=== PATIENT | female | born 1955 | race Caucasian/White ===

== ENCOUNTER 2016-12-30 12:30 | Emergency (ER) | payer OTHER ==
[~2016-12-30] VITALS: Ht 167.6 cm; Wt 100.0 kg
[~2016-12-30 12:30] MED LIST: CITA40TA4 PO; FLOR250C PO; FOLI1TAB4 PO; OMEP20CA2; OXYC1TAB63 PO; PSEU30TA2 PO; TOPI1TAB36 PO; TRAZ150T75 PO; TUMS500C CHEW; VITA100021 SL; VITA3000 PO
[2016-12-30 12:31] VITALS: BP 178/86; PULSE 105; RESP 26; TEMP 98.4; O2SAT 98
--- NOTE | 2016-12-30 13:48 | PD ---
HPI Chief Complaint: Pain: Acute or Chronic Time Seen by Provider: 13:48 Travel History International Travel<30 days: No Contact w/Intl Traveler<30days: No Traveled to known affect area: No History of Present Illness HPI 61-year-old female presents to emergency Department with complaint of continued left upper back pain times one week. Denies injury. Has history of degenerative disc disease and sees Dr. Goyal, neurosurgeon. Has follow-up appointment with Dr. Goyal on January 19. Saw her primary care provider on Tuesday and was given muscle relaxers for nerve impingement, with no improvement in symptoms. Was also given an order for MRI, which she tried to do MRI this morning and was unable to lie flat on the table secondary to pain. She was unable to complete the MRI. She also takes oxycodone and says it hasn't been touching her pain. Pain radiates down her left arm. She denies chest pain or shortness of breath. Denies fever, vomiting. Pain is worse with lying flat, movement, palpation. Reports occasional paresthesias to her left second and third fingers. Denies loss of sensation, decreased range of motion, decreased strength to the affected extremity. Rates pain 10/10. Patient is tearful. Describes as a sharp shooting pain. Allergies to sulfa. Has no other medical complaints. No other modifying factors or associated signs and symptoms. PFSH Past Medical History Cancer: Yes (COLON CANCER) Diabetes: No Hepatitis: No Hiatal Hernia: No Thyroid Disease: No ?: Not Past Surgical History Abdominal Surgery: Yes (PARTIAL COLECTOMY, CHEMO 1999) Gynecologic Surgery: Yes (TOTAL HYSTERECTOMY) Hysterectomy: Yes Pacemaker: No Social History Alcohol Use: Yes Tobacco Use: No Substance Use: No Allergies-Medications (Allergen,Severity, Reaction): Coded Allergies: Sulfa (Sulfonamide Antibiotics) (Unverified Allergy, Severe, Rash, 10/27/16 ) Reported Meds & Prescriptions Reported Meds & Active Scripts Active Medrol Dosepak (Methylprednisolone) 4 Mg Dspk 4 Mg PO DIRECTED Per Pharmacist direction Reported Florastor (Saccharomyces Boulardii) 250 Mg Cap 250 Mg PO BID Vitamin B-12 (Cyanocobalamin) 1,000 Mcg Subl 1,000 Mcg SL DAILY Tums (Calcium Carbonate (Antacid)) 500 Mg Chew 500 Mg CHEW PRN Vitamin D3 (Cholecalciferol) 3,000 Unit Tab 3,000 Units PO DAILY Citalopram (Citalopram Hydrobromide) 40 Mg Tab 40 Mg PO DAILY Folate (Folic Acid) 1 Mg Tab 1 Mg PO DAILY Omeprazole 20 Mg Cap Oxycodone-Acetaminophen 5-325 mg Tab 1 Tab PO Q8HR Pseudoephedrine (Pseudoephedrine HCl) 30 Mg Tab 30 Mg PO DAILY PRN Topiramate 50 Mg Tab 50 Mg PO BID Trazodone (Trazodone HCl) 150 Mg Tab 150 Mg PO HS Review of Systems Except as stated in HPI: all other systems reviewed are Neg Physical Exam Narrative GENERAL: Well-nourished, well-developed female patient, in no acute distress; tearful and crying SKIN: Warm and dry. HEAD: Atraumatic. Normocephalic. EYES: Pupils equal and round. No scleral icterus. No injection or drainage. ENT: Mucosa pink and moist. Airway patent. NECK: Moving freely. Trachea midline. No lymphadenopathy. No obvious deformities. CARDIOVASCULAR: Regular rate. RESPIRATORY: No accessory muscle use. GASTROINTESTINAL: Obese. MUSCULOSKELETAL: Left upper extremity is supple and non-tense with 2+ radial pulse and sensory intact without erythema or edema and with full range of motion and strength. No obvious deformities. No clubbing. No cyanosis. No edema. Normal gait. BACK: Reproducible tenderness to the left upper musculature of the back of the trapezius muscle between the scapula and the spine.. No obvious deformities. NEUROLOGICAL: Awake and alert. Oriented 3. No obvious cranial nerve deficits. Motor grossly within normal limits. Normal speech. Moves all extremities. 5/5 strength to all extremities. Sensory intact. PSYCHIATRIC: Appropriate mood and affect; insight and judgment normal. Data Data Last Documented VS Vital Signs Date Time Temp Pulse Resp B/P (MAP) Pulse Ox O2 Delivery O2 Flow Rate FiO2 12/30/16 12:31 98.4 105 26 178/86 (116) 98 Orders Orders Ketorolac Inj (Toradol Inj) (12/30/16 14:00) Orphenadrine Inj (Norflex Inj) (12/30/16 14:00) Dexamethasone Inj (Decadron Inj) (12/30/16 14:00) Ed Discharge Order (12/30/16 13:58) MDM Medical Decision Making Medical Screen Exam Complete: Yes Emergency Medical Condition: Yes Medical Record Reviewed: Yes Differential Diagnosis Cervical radiculopathy, muscle spasm of the back, chronic back pain Narrative Course 61-year-old female, with chronic back pain, history of present illness and physical exam consistent with cervical radiculopathy. Denies new or recent injury. She saw her primary care provider on Tuesday and was given muscle relaxers with no improvement in symptoms. She was also ordered to do an MRI and went to go to this morning was unable to lie flat to get it done. She sees Dr. Goyal for degenerative disc disease and has a follow-up appointment on January 19. She has prescribed oxycodone and muscle relaxers. I will order an injection of Decadron in the emergency department and prescribed a Medrol Dosepak for home. Toradol, Norflex, Decadron administered in the ER. Medrol Dosepak prescribed for home. Instructed patient to continue muscle relaxers and pain medication as prescribed. Instructed patient to obtain MRI. Instructed patient to follow up with Dr. Goyal. Instructed patient to follow up with primary care provider. Patient verbalizes understanding and agreement with treatment plan. Patient is medically cleared and stable for discharge. Discussed reasons to return to the emergency department. Patient agrees with treatment plan. The patients vital signs are stable and the patient is stable for outpatient follow-up and treatment. Patient discharged home, stable and in no acute distress. Diagnosis Primary Impression: Cervical radiculopathy Referrals: Neurosurgeon Primary Care Physician Patient Instructions: Cervical Radiculopathy (ED), General Instructions Additional Instructions: Continue medications and muscle relaxers as prescribed Heating pad and/or ice to affected area to reduce pain Avoid aggravating activities; increase activity as tolerated Follow-up with primary care provider Follow-up with neurosurgeon Return to emergency department immediately with worsening of symptoms Med/Other Pt SpecificInfo: Prescription(s) given Scripts Methylprednisolone Dosepak (Medrol Dosepak) 4 Mg Dspk 4 MG PO DIRECTED, #1 DSPK 0 Refills Per Pharmacist direction Prov: Janet Pinon 12/30/16 Disposition: 01 DISCHARGE HOME Condition: Stable Janet Pinon Dec 30, 2016 13:48
[2016-12-30] MEDS ORDERED: MEDR4PAK PO (13:56)
[2016-12-30] MEDS ORDERED: ORPHENADRINE INJ 60 MG/2 ML AMP IM ONE (14:00)
[2016-12-30] MEDS ORDERED: KETOROLAC TROMETHAMINE 60 MG/2 ML (IM) VIAL IM ONE (14:00)
[2016-12-30] MEDS ORDERED: DEXAMETHASONE SOD PHOS 4 MG/ML VIAL IM ONE (14:00)
[2016-12-30 14:50] VITALS: BP 169/83
[2017-01-05] MEDS ORDERED: [UNRECOGNIZED DRUG - CODE] (16:27)
[2017-01-05] MEDS ORDERED: SOMA350T PO (16:27)
[2017-01-05] MEDS ORDERED: KETO10 PO (16:27)
[2017-01-05] MEDS ORDERED: TRAZ1TAB45 PO (16:27)
[2017-01-05] MEDS ORDERED: FOLI1TAB6 (16:27)
[2017-01-05] MEDS ORDERED: TURM500C3 (16:28)
== END 2016-12-30 14:54 | disposition home or self-care (01) ==
LOC: NEPK 12:30
DX: M54.12 Radiculopathy, cervical region (principal)
CPT/HCPCS: 99283

== ENCOUNTER 2017-01-05 17:50 | Observation (INO) | payer OTHER ==
[~2017-01-05] VITALS: Ht 167.6 cm; Wt 95.8 kg
[~2017-01-05 17:50] MED LIST changes: +FOLI1TAB6; +KETO10 PO; +MEDR4PAK PO; +SOMA350T PO; +TRAZ1TAB45 PO; +TURM500C3; +[UNRECOGNIZED DRUG - CODE]
[2017-01-05] MEDS ORDERED: HYDROmorphone HCL PF 1 MG/ML VIAL IV PUSH PRN (19:00)
[2017-01-05] MEDS ORDERED: NALOXONE HCL 0.4 MG/ML AMP IV PUSH PRN (19:00)
[2017-01-05] MEDS ORDERED: HYDROmorphone HCL 2 MG TAB PO PRN (19:00)
[2017-01-05] MEDS ORDERED: ONDANSETRON HCL 4 MG/2 ML VIAL IV PUSH PRN (19:00)
--- NOTE | 2017-01-05 19:25 | HHI.HP ---
HPI Service Neurosurgery Primary Care Physician Unknown Chief Complaint: Severe left scapular, shoulder and arm pain for approximately 10 days History of Present Illness Ms. Lange is a 61-year-old lady who states that approximately 10 days ago she turned at night and felt some discomfort in the left shoulder. Throughout the next day she experienced progressive severe pain in the left posterior shoulder and upper scapular region with progressive radiation of pain to the primarily dorsal aspect of the left arm greater than forearm. The pain has persisted and increased in severity over the past week. She has now developed constant numbness in the first through third digits of the left hand with occasional numbness in the dorsal left forearm. The pain has ranged from a 7-10/10 severity over the past week. She presented to the emergency room last week and states that she was given an injection which slightly helped the pain. An outpatient MRI of the cervical spine and thoracic spine was ordered. She has taken oxycodone Toradol prednisone and Robaxin for the pain, all without significant relief. She has no complaint of fevers or chills. No chest pain or shortness of breath. No productive cough. She does have a history of low back pain, but over the past couple of weeks has developed numbness over the left anterior lateral thigh. Review of Systems Constitutional: DENIES: Fatigue, Fever Eyes: DENIES: Blurred vision, Diplopia Ears, nose, mouth, throat: DENIES: Hearing loss, Vertigo Respiratory: DENIES: Sputum production, Shortness of breath Cardiovascular: DENIES: Chest pain, Palpitations Gastrointestinal: DENIES: Abdominal pain, Diarrhea, Nausea, Vomiting Genitourinary: DENIES: Urinary frequency, Urinary incontinence Musculoskeletal: COMPLAINS OF: Muscle aches, Back pain, Neck pain, DENIES: Joint pain, Joint Swelling Integumentary: DENIES: Rash Hematologic/lymphatic: DENIES: Bruising Neurologic: COMPLAINS OF: Paresthesias, DENIES: Abnormal gait, Headache, Localized weakness Psychiatric: COMPLAINS OF: Anxiety, DENIES: Confusion Past Family Social History Allergies: Coded Allergies: Sulfa (Sulfonamide Antibiotics) (Unverified Allergy, Severe, Rash, ) Past Medical History Colon cancer No history of cardiac, pulmonary disease, hypertension, diabetes Past Surgical History Partial colectomy Hysterectomy Reported Medications Reported Meds & Active Scripts Active Medrol Dosepak (Methylprednisolone) 4 Mg Dspk 4 Mg PO DIRECTED Per Pharmacist direction Reported Turmeric (Turmeric (Curcuma Longa)) 450 Mg-50 Mg Cap Folic Acid 1 Mg Tablet Eql Nasal Decongestant (Pseudoephedrine HCl) 30 Mg Tab Trazodone (Trazodone HCl) 150 Mg Tablet 150 Mg PO HS Soma (Carisoprodol) 350 Mg Tab 350 Mg PO QID PRN Ketorolac (Ketorolac Tromethamine) 10 Mg Tab 10 Mg PO Q6HR PRN Florastor (Saccharomyces Boulardii) 250 Mg Cap 250 Mg PO BID Tums (Calcium Carbonate (Antacid)) 500 Mg Chew 500 Mg CHEW PRN Vitamin D3 (Cholecalciferol) 3,000 Unit Tab 3,000 Units PO DAILY Citalopram (Citalopram Hydrobromide) 40 Mg Tab 40 Mg PO DAILY Omeprazole 20 Mg Cap Oxycodone-Acetaminophen 5-325 mg Tab 1 Tab PO Q8HR Family History Negative for neurologic disorders, arthritis, lupus, MS Social History Does not smoke cigarettes. Infrequent alcohol Physical Exam Physical Exam GENERAL: This is a well-nourished, well-developed patient, no apparent distress. SKIN: No abrasions, contusion, rash noted. Skin warm and dry. HEAD: Atraumatic. Normocephalic. No temporal or scalp tenderness. EYES: Sclerae are clear and nonicteric ENT: No facial edema or ecchymosis. No periorbital edema. No CSF otorrhea or rhinorrhea. No palpable facial fracture or deformity. NECK: Trachea midline. Mild cervical spine tenderness. Cervical range of motion 60 rotation, 30 flexion, 15 extension with complaint of increased left shoulder and arm pain with extension CARDIOVASCULAR: Regular rate and rhythm without murmurs, gallops, or rubs. RESPIRATORY: Clear to auscultation. Breath sounds equal bilaterally. No wheezes , rales, or rhonchi. GASTROINTESTINAL: Abdomen soft, non-tender, nondistended. No hepato-splenomegaly , or palpable masses. No guarding. MUSCULOSKELETAL: Extremities without cyanosis, or edema. No joint tenderness, or edema noted. No calf tenderness. Dorsalis pedis pulses 2+ bilateral Moderate tenderness with relatively mild palpation over the left posterior shoulder-upper scapular region as well as over the lateral left arm greater than dorsal left forearm. No significant shoulder joint pain or impairment of shoulder joint range of motion NEUROLOGICAL: Awake and alert Oriented X 3 Speech is clear Conversant and appropriate Follow simple commands well Answers questions appropriately Reasonable judgment and insight Recent and remote memory are intact Appears anxious during the examination. Becomes mildly agitated at times, and tearful when discussing her pain symptoms Patient motor movements symmetric Sensation is intact to light touch in all extremities except mild to moderate decreased sensation first through third digits left hand Strength normal major flexion and extension groups all extremities Chinedu's absent bilaterally No ankle clonus Plantar responses absent bilateral Fine motor movements intact upper extremities Imaging 12/31/2016 MRI of the cervical spine reveals moderate chronic C5 6 posterior osteophytic disc complexes which mildly impinges on the anterior cord. No abnormal signal intensity within the cord. Moderate bilateral foraminal stenosis at the C5 6 level. Mild left C6 7 foraminal stenosis. Caprini VTE Risk Assessment Caprini VTE Risk Assessment: No/Low Risk (score <= 1) Caprini Risk Assessment Model Point Value = 1 Point Value = 2 Point Value = 3 Point Value = 5 Age 41-60 Minor surgery BMI > 25 kg/m2 Swollen legs Varicose veins or History of unexplained or recurrent spontaneous Oral contraceptives or hormone replacement Sepsis (< 1 month) Serious lung disease, including pneumonia (< 1 month) Abnormal pulmonary function Acute myocardial infarction Congestive heart failure (< 1 month) History of inflammatory bowel disease Medical patient at bed rest Age 61-74 Arthroscopic surgery Major open surgery (> 45 min) Laparoscopic surgery (> 45 min) Malignancy Confined to bed (> 72 hours) Immobilizing plaster cast Central venous access Age >= 75 History of VTE Family history of VTE Factor V Leiden Prothrombin [id number] Lupus anticoagulant Anticardiolipin antibodies Elevated serum homocysteine Heparin-induced thrombocytopenia Other congenital or acquired thrombophilia Stroke (< 1 month) Elective arthroplasty Hip, pelvis, or leg fracture Acute spinal cord injury (< 1 month) Prophylaxis Regimen Total Risk Factor Score Risk Level Prophylaxis Regimen 0-1 Low Early ambulation 2 Moderate Order ONE of the following: *Sequential Compression Device (SCD) *Heparin 5000 units SQ BID 3-4 Higher Order ONE of the following medications: *Heparin 5000 units SQ TID *Enoxaparin/Lovenox 40 mg SQ daily (WT < 150 kg, CrCl > 30 mL/min) *Enoxaparin/Lovenox 30 mg SQ daily (WT < 150 kg, CrCl > 10-29 mL/min) *Enoxaparin/Lovenox 30 mg SQ BID (WT < 150 kg, CrCl > 30 mL/min) AND/OR *Sequential Compression Device (SCD) 5 or more Highest Order ONE of the following medications: *Heparin 5000 units SQ TID (Preferred with Epidurals) *Enoxaparin/Lovenox 40 mg SQ daily (WT < 150 kg, CrCl > 30 mL/min) *Enoxaparin/Lovenox 30 mg SQ daily (WT < 150 kg, CrCl > 10-29 mL/min) *Enoxaparin/Lovenox 30 mg SQ BID (WT < 150 kg, CrCl > 30 mL/min) AND *Sequential Compression Device (SCD) Assessment and Plan Assessment and Plan Impression: 1. Severe intractable left shoulder and arm pain with numbness first through third digits left hand. Outpatient cervical spine MRI this week has been reviewed and reveals moderate left C5 6 and mild left C6 7 foraminal stenosis. These are chronic findings unchanged from prior MRI from 2013. Her symptoms appear unusual and somewhat out of proportion to the MRI findings raising question of other etiology including possible left shoulder myofascial pain or brachial plexitis. 2. Chronic low back pain with recent onset numbness left anterior lateral thigh. Plan: Findings were discussed with the patient. She is extremely painful and tearful in the office today, to the point of being rather agitated. I offered to bring her to the hospital for further evaluation and intraoral of the intractable pain, and she does wish to pursue this. We will add additional medications including IV pain medications and short course of dexamethasone for her pain regimen. MRI of the left shoulder and brachial plexus is been requested. OT and PT evaluations Will ask neurology to see due to possible left brachial plexitis. Baseline laboratory tests Arnoldo Goyal MD Jan 05, 2017 19:24
[2017-01-05 20:17] VITALS: BP 161/73; PULSE 75; RESP 18; TEMP 97.3; O2SAT 97
[2017-01-05] MEDS ORDERED: HYDROmorphone HCL PF 0.5 MG/0.5 ML SYRINGE IV PUSH PRN (20:30)
[2017-01-05] MEDS: LACTOBACILLUS ACIDOPHILUS TAB PO SCH (20:33)
[2017-01-05] MEDS: DOCUSATE SODIUM 100 MG CAP PO SCH (20:33)
[2017-01-05] MEDS: traZODone HCL 50 MG TAB PO SCH (20:34)
[2017-01-05] MEDS: DEXAMETHASONE 4 MG TAB PO SCH (20:34)
[2017-01-05] MEDS: METHOCARBAMOL 500 MG TAB PO PRN (23:33)
[2017-01-05] MEDS: KETOROLAC TROMETHAMINE 30 MG/ML (IVP) VIAL IV PUSH SCH (23:34)
[2017-01-06 00:51] VITALS: BP 146/69; PULSE 71; RESP 18; TEMP 97.5; O2SAT 96
[2017-01-06 02:56] VITALS: O2SAT 95
[2017-01-06 05:26] VITALS: BP 123/60; PULSE 66; RESP 18; TEMP 97.5; O2SAT 94
[2017-01-06] MEDS: KETOROLAC TROMETHAMINE 30 MG/ML (IVP) VIAL IV PUSH SCH ×3 (06:06→17:49)
[2017-01-06 07:40] LABS: AUTOMATED NEUTROPHIL # 11.1 TH/MM3 (1.8-7.7); BASOPHIL % 0.1 % (0.0-2.0); EOSINOPHIL % 0.2 % (0.0-4.0); HEMATOCRIT 37.8 % (35.0-46.0); HEMO FLAGS DIFF FINAL; LYMPH % 11.4 % (9.0-44.0); LYMPHOCYTE # 1.5 TH/MM3 (1.0-4.8); MEAN CELL VOLUME 93.7 FL (80.0-100.0); MEAN CORPUSCULAR HGB CONC 34.2 % (32.0-36.0); MONO % 2.4 % (0.0-8.0); NEUT % 85.9 % (16.0-70.0); PLATELET COUNT 346 TH/MM3 (150-450); RED BLOOD COUNT 4.03 MIL/MM3 (4.00-5.30); RED CELL DISTRIBUTION WIDTH 13.5 % (11.6-17.2)
[2017-01-06 08:28] VITALS: BP 121/61; PULSE 61; RESP 20; TEMP 98.2; O2SAT 95
[2017-01-06] MEDS: CITALOPRAM HYDROBROMIDE 40 MG TAB PO SCH (08:53)
[2017-01-06] MEDS: PANTOPRAZOLE SOD 40 MG DELAYED RELEASE TAB PO SCH (08:53)
[2017-01-06] MEDS: DOCUSATE SODIUM 100 MG CAP PO SCH ×2 (08:53→20:54)
[2017-01-06] MEDS: METHOCARBAMOL 500 MG TAB PO PRN ×2 (08:53→20:54)
[2017-01-06] MEDS: DEXAMETHASONE 4 MG TAB PO SCH ×2 (08:54→20:54)
[2017-01-06] MEDS: LACTOBACILLUS ACIDOPHILUS TAB PO SCH ×2 (08:54→20:54)
[2017-01-06] MEDS: CHOLECALCIFEROL (VIT D3) 1000 UNIT TAB PO SCH (08:55)
[2017-01-06 08:59] LABS: ANION GAP 8 MEQ/L (5-15); AST (GOT) 17 U/L (15-37); BICARBONATE 23.7 MEQ/L (21.0-32.0); BLOOD UREA NITROGEN 23 MG/DL (7-18); CHLORIDE 104 MEQ/L (98-107); GLOMERULAR FILTRATION RATE 64 ML/MIN (>89); POTASSIUM 4.8 MEQ/L (3.5-5.1); SODIUM (NA) 136 MEQ/L (136-145)
[2017-01-06 09:00] LABS: ALT (GPT) 40 U/L (10-53)
[2017-01-06 09:02] LABS: ALKALINE PHOSPHATASE 107 U/L (45-117); TOTAL BILIRUBIN ADULT 0.4 MG/DL (0.2-1.0)
[2017-01-06] MEDS: oxyCODONE/ACETAMINOPHEN 5 MG/325 MG TAB PO PRN ×2 (10:22→20:56)
[2017-01-06] MEDS: MORPHINE SULFATE 4 MG/ML INJ IV PUSH PRN (11:20)
[2017-01-06] MEDS ORDERED: GADODIAMIDE PF 287 MG/ML 20 ML VIAL (for RAD MRI) IVCONTRAST ONE (12:00)
--- NOTE | 2017-01-06 15:40 | RADRPT ---
EXAM DATE/TIME: 01/06/2017 11:31 [facility] COMPARISON: No previous studies available for comparison. EXTERNAL COMPARISON : [facility], MRI Cervical and Thoracic Spine, December 31, 2016 INDICATIONS : Severe left shoulder pain. No known injury. CONTRAST: 19 cc Omniscan (gadodiamide) IV MEDICAL HISTORY : Sleep apnea. 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 SURGICAL HISTORY : Hysterectomy. Colectomy. ENCOUNTER: Initial ACUITY: 2 weeks PAIN SCORE: 9/10 LOCATION: Right Shoulder. TECHNIQUE: Multiplanar, multisequence MRI examination of the brachial plexus was performed without contrast and after intravenous administration of gadolinium. FINDINGS: SOFT TISSUES: There is normal signal in the muscular and fatty tissues. No masses are seen. LUNGS: The visualized pulmonary apex is unremarkable. NEUROVASCULAR: The vascular structures of the supraclavicular region are grossly intact. The visualized structures in the region of the brachial plexus nerve roots and trunks are intact without mass or enlargement. BONY STRUCTURES: There is homogeneous signal in the marrow of the visualized bones. There are moderate degenerative ch anges in the cervical spine. There is sizable disc protrusions at C5-6, C6-7 and C7-T1. CONCLUSION: 1. The brachial plexus is intact. 2. Degenerative changes of the cervical spine with disc protrusions as above. Cristian Polanco MD on January 06, 2017 at 15:25 Board Certified Radiologist. This report was verified electronically.
[2017-01-06 16:10] VITALS: BP 150/68; PULSE 90; RESP 20; TEMP 96.6; O2SAT 95
--- NOTE | 2017-01-06 16:52 | HHI.NSPN ---
(Rashard Fraser) History Chief Complaint: Pain to the left posterior shoulder and arm. (Rashard Fraser) Interval History 01/05: Ms. Lange is a 61-year-old lady who states that approximately 10 days ago she turned at night and felt some discomfort in the left shoulder. Throughout the next day she experienced progressive severe pain in the left posterior shoulder and upper scapular region with progressive radiation of pain to the primarily dorsal aspect of the left arm greater than forearm. The pain has persisted and increased in severity over the past week. She has now developed constant numbness in the first through third digits of the left hand with occasional numbness in the dorsal left forearm. The pain has ranged from a 7-10/10 severity over the past week. She presented to the emergency room last week and states that she was given an injection which slightly helped the pain. An outpatient MRI of the cervical spine and thoracic spine was ordered. She has taken oxycodone Toradol prednisone and Robaxin for the pain, all without significant relief. She has no complaint of fevers or chills. No chest pain or shortness of breath. No productive cough. She does have a history of low back pain, but over the past couple of weeks has developed numbness over the left anterior lateral thigh. 01/06: The patient is doing fairly well when seen. She continues to have the pain to the left posterior shoulder and arm and the numbness to the first three digits of the left hand. She did have and MRI of the shoulder and brachial plexus this morning. (Rashard Fraser) System Review Comments Respiratory: Some shortness of breath. Cardiovascular: Some pain to the breast bone. Gastrointestinal: Some pain to the left epigastric area. Musculoskeletal: Pain to the left lateral neck going into the left posterior shoulder and down the left arm. Neurologic: Numbness to the left hand second digit, slight numbness to the first and third. The remainder of the ROS is negative. (Rashard Fraser) Exam Results 01/04/17 01/04/17 01/05/17 01/05/17 01/06/17/26/17 06:00 18:00 06:00 18:00 06:00 18:00 Intake Total 480 ml 600 ml Balance 480 ml 600 ml Intake Oral 480 ml 600 ml # Voids 2 2 Vital Signs Date Time Temp Pulse Resp B/P (MAP) Pulse Ox O2 Delivery O2 Flow Rate FiO2 01/06/17 16:10 96.6 90 20 150/68 (95) 95 01/06/17 08:28 98.2 61 20 121/61 (81) 95 01/06/17 05:26 97.5 66 18 123/60 (81) 94 01/06/17 02:56 95 21 01/06/17 00:51 97.5 71 18 146/69 (94) 96 01/05/17 20:17 97.3 75 18 161/73 (102) 97 (Rashard Fraser) Physical Examination GENERAL: Awake & alert, affect normal, no apparent distress but appears minimally uncomfortable. SKIN: Warm, dry & intact w/o any evident rashes, ulcerations or lesions. HEENT: Normocephalic, atraumatic. NECK: Midline cervical spine mildly TTP, no JVD, trachea midline. CARDIOVASCULAR: S1S2 w/RRR w/o M/G/R, radial & pedal pulses 2+ bilaterally, cap refill < 2 sec, trace pedal edema. RESPIRATORY: CTAB w/o W/R/R, equal excursion, nonlaboured, on RA. GASTROINTESTINAL: Abdomen soft, nontender, positive bowel sounds. MUSCULOSKELETAL: GARCIA w/o difficulty, no evident deformity or clubbing. TTP at T1 and left paraspinal going across the upper posterior left shoulder and into the left lateral arm w/moderate point tenderness to the distal upper shoulder and proximal lateral arm. NEUROLOGICAL: AAOx3. Speech clear & appropriate. Follows simple commands w/o difficulty. Sensation intact to light touch to all extremities except for the left hand 2nd digit which is decreased and to a lesser degree the 1st & 3rd digits. Motor strength is 5/5 to all major flexion & extension muscle groups. (Rashard Fraser) Lab, Micro, Other Results Recent Impressions Brachial Plexus MRI 01/06/17 0000 Signed Impressions: Service Date/Time: Thursday, January 06, 2017 11:31 - CONCLUSION: 1. The brachial plexus is intact. 2. Degenerative changes of the cervical spine with disc protrusions as above. Cristian Polanco MD Laboratory Tests Test 01/06/17 06:41 White Blood Count 13.0 TH/MM3 Red Blood Count 4.03 MIL/MM3 Hemoglobin 12.9 GM/DL Hematocrit 37.8 % Mean Corpuscular Volume 93.7 FL Mean Corpuscular Hemoglobin 32.0 PG Mean Corpuscular Hemoglobin Concent 34.2 % Red Cell Distribution Width 13.5 % Platelet Count 346 TH/MM3 Mean Platelet Volume 7.6 FL Neutrophils (%) (Auto) 85.9 % Lymphocytes (%) (Auto) 11.4 % Monocytes (%) (Auto) 2.4 % Eosinophils (%) (Auto) 0.2 % Basophils (%) (Auto) 0.1 % Neutrophils # (Auto) 11.1 TH/MM3 Lymphocytes # (Auto) 1.5 TH/MM3 Monocytes # (Auto) 0.3 TH/MM3 Eosinophils # (Auto) 0.0 TH/MM3 Basophils # (Auto) 0.0 TH/MM3 CBC Comment DIFF FINAL Differential Comment Erythrocyte Sedimentation Rate 7 mm/hr Blood Urea Nitrogen 23 MG/DL Creatinine 0.89 MG/DL Random Glucose 125 MG/DL Total Protein 7.3 GM/DL Albumin 4.0 GM/DL Calcium Level 9.4 MG/DL Alkaline Phosphatase 107 U/L Aspartate Amino Transf (AST/SGOT) 17 U/L Alanine Aminotransferase (ALT/SGPT) 40 U/L Total Bilirubin 0.4 MG/DL Sodium Level 136 MEQ/L Potassium Level 4.8 MEQ/L Chloride Level 104 MEQ/L Carbon Dioxide Level 23.7 MEQ/L Anion Gap 8 MEQ/L Estimat Glomerular Filtration Rate 64 ML/MIN C-Reactive Protein 0.37 MG/DL (Rashard Fraser) Medical Decision Making Impression and Plan Impression: 1. Severe intractable left shoulder and arm pain with numbness first through third digits left hand. Outpatient cervical spine MRI this week has been reviewed and reveals moderate left C5 6 and mild left C6 7 foraminal stenosis. These are chronic findings unchanged from prior MRI from 2013. Her symptoms appear unusual and somewhat out of proportion to the MRI findings raising question of other etiology including possible left shoulder myofascial pain or brachial plexitis. 2. Chronic low back pain with recent onset numbness left anterior lateral thigh. Patient continues to have pain to the left shoulder and arm w/o any change. MRI w/o any evidence of brachial plexus abnormality but did demonstrate degenerative disc changes w/protrusions to the cervical spine. Plan: Pain medications. PT/OT eval & tx. Neurology consult. (Rashard Fraser) Attending Statement The MRI of the brachial plexus and shoulder was also been reviewed. The patient continues to have severe left shoulder, proximal greater than distal arm pain. Symptoms seem rather out of proportion to the cervical spine and MRI findings, which are rather chronic and not significant change from prior MRI from 2012. Continuing therapy, pain medications for control of intractable pain. Neurology evaluation pending. Upper extremity EMG may be considered. Continue short course steroids. (Arnoldo Goyal MD) Rashard Fraser Jan 06, 2017 16:52 Arnoldo Goyal MD Jan 06, 2017 22:33
--- NOTE | 2017-01-06 17:35 | RADRPT ---
EXAM DATE/TIME: 01/06/2017 11:31 [place] COMPARISON: No previous studies available for comparison. EXTERNAL COMPARISON : [facility], MRI Cervical and Thoracic Spine, December 31, 2016 INDICATIONS : Severe left shoulder pain. No known injury. MEDICAL HISTORY : Sleep apnea. SURGICAL HISTORY : Hysterectomy. Colectomy. Sebacious gland removed from groin. ENCOUNTER: Initial ACUITY: 2 weeks PAIN SCORE: 9/10 LOCATION: Left shoulder TECHNIQUE: Multiplanar, multisequence MRI examination was performed without contrast. FINDINGS: ROTATOR CUFF: The supraspinatus, infraspinatus, subscapularis, and teres minor tendons are intact. LABRUM: Labrum is within normal limits. MARROW/CARTILAGE: Bone marrow signal is homogeneous. The humeral head is mildly high riding.. OTHER: Acromioclavicular joint is within normal limits. The acromion has a curved configuration posteriorly and narrows the superior joint space.. Proximal biceps tendon is intact. Minimal mild fluid in the distal subacromial bursa and minimal mild fluid in the joint space. CONCLUSION: 1. The rotator cuff appears intact. 2. Mild impingement with high riding humeral head and posterior downsloping acromion. Rosales Sainz MD on January 06, 2017 at 17:28 Board Certified Radiologist. This report was verified electronically.
[2017-01-06 20:00] VITALS: BP 163/75; PULSE 83; RESP 18; TEMP 97.9; O2SAT 95
[2017-01-06] MEDS: traZODone HCL 50 MG TAB PO SCH (20:54)
[2017-01-07] VITALS (7 sets, daily range): BP systolic 121–140; BP diastolic 56–96; PULSE 57–74; RESP 16–20; TEMP 97.6–98.6; O2SAT 94–97
[2017-01-07] MEDS: KETOROLAC TROMETHAMINE 30 MG/ML (IVP) VIAL IV PUSH SCH ×4 (06:10→16:18)
--- NOTE | 2017-01-07 06:17 | MB ---
cc: JOSIE,ID DATE OF CONSULTATION 01/06/2017 REASON FOR CONSULTATION Severe acute left arm. Possible brachial plexitis versus cervical radiculopathy. HISTORY OF PRESENT ILLNESS Ms. Lange is a 61-year-old right-handed female who states that she has had left upper extremity and left shoulder discomfort that started 11 days ago, first in the left shoulder. 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 The patient describes severe excruciating pain mainly in the left shoulder region; it radiates down the outer border of the arm , wraps around the forearm down to the outer surface of the forearm to the thumb , index and middle finger. The pain is dull, constant, occasionally with sharp shooting pain. The patient states that the pain is mainly position related. She denies any weakness in the bilateral upper extremity or lower extremity. No change in the skin color or dryness or over-sweating over the skin. No skin lesions on described. She denies a flu-like illness or fever prior to this illness. She received an injection of nonsteroidal inflammatory recently and she is on opiate medication that tends to help but she expresses her desire not to be on opiate medications. She has been started by her neurosurgeon on Toradol and a short course of steroids. No recent history of weight loss, night sweats or fever. REVIEW OF SYSTEMS A 12-point review of systems is negative except for what is stated in the HPI. PAST MEDICAL HISTORY 1. Colon cancer. 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 4. Ankylosing spondylitis. 5. Bilateral frozen shoulder. 6. Cervical spine degeneration. PAST SURGICAL HISTORY 1. Partial colectomy. 2. Hysterectomy. 3. Removal of sebaceous cancer of the groin. MEDICATIONS 1. Medrol Dosepak. 2. Turmeric. 3. Folic acid. 4. Trazodone. 5. Soma. 6. Ketolorac. 7. Florastor. 8. Tums. 9. Vitamin D3. 10. Citalopram. 11. Omeprazole. 12. Oxycodone/acetaminophen. FAMILY HISTORY Noncontributory. SOCIAL HISTORY Denies smoking cigarettes or illicit drug abuse. Infrequently consumes alcohol. PHYSICAL EXAMINATION GENERAL: Overweight. Good historian. Pleasant. In moderate distress due to pain. HEENT: Atraumatic, normocephalic. Intact hearing and intact vision. NECK: Supple. No neck stiffness. Mild tenderness of the neck muscles. CARDIOVASCULAR: Regular rate and rhythm. RESPIRATORY: Clear to auscultation, no wheezes. GASTROINTESTINAL: Soft, nondistended. No tenderness. MUSCULOSKELETAL: No cyanosis, no edema. Good range of motion. Moderate tenderness in the posterior shoulder and scapular region, left greater than the right NEUROLOGICAL: Awake, alert, oriented to time, person and place. No dysarthria , no dysphasia. Cranial nerves II-XII are grossly intact. Pupils are equally reacting to light bilateral and symmetrical. No diplopia. No nystagmus. Intact facial sensation. MOTOR EXAMINATION: 5/5 bilateral symmetrical upper and lower. Limitation of movement bilateral, particularly left shoulder. Intact sensation bilateral to light touch and temperature. Normal muscle strength. No abnormal movement and normal tone bilateral upper and lower extremities. Reflexes 2+ bilateral and symmetrical. Negative Chinedu sign. Negative crossed adductor reflex. Finger- to-nose, [id number] is intact bilateral and symmetric. Plantars are bilaterally downgoing. PSYCHIATRIC: Cooperative. Normal mood and behavior. DIAGNOSTIC IMAGING - MRI that was done by her neurosurgeon last week of the cervical spine was review she states that there was moderate chronic C5-6 degenerative disc disease. No significant change from the prior MRI of the cervical spine. LAB TESTS White blood cells 15.4, hemoglobin 12.9, platelet 346. Sodium 136, potassium 4.8 , anion gap 8, BUN 20, creatinine 0.89, random glucose 125, AST 17, ALT 40. C- reactive protein 0.37. Sed rate 7. DIAGNOSTIC IMPRESSION 1. Acute /subacute left upper extremity shoulder pain. 2. Chronic cervical degenerative disk disease. 3. Ankylosing spondylitis. 4. History of colon cancer status post partial colectomy. 5. Recent diagnosis of sebaceous carcinoma of the groin status post surgical removal. DIAGNOSTIC IMPRESSION AND PLAN 1. Given the subacute pain in the left upper extremity and shoulder of an abrupt onset with unremarkable focal neurologic deficits or reflex change, the possibility of neuralgic amyotrophy or [Parsonage-Haque syndrome] can be entertained, however, usually this is followed by atrophy and weakness of the affected muscle groups and typically would be evident after the third week of the start of the symptoms and atrophy of the muscle groups would be evident even later. The absence of a flu-like symptom or prodrome of respiratory infection or immunization is absent in the history which usually precedes this syndrome. However, the chronic diagnosis of ankylosing spondylitis may raise an immune pathology of a sporadic immune mediated brachial plexus neuropathy. 2. The symptoms may be related to acute cervical radiculopathy] given the nature of the pain and the distribution of the pain and the relation to position. 3. Electrodiagnostic studies/EMG and nerve conduction study is recommended to reveal possible multifocal patchy evidence of axonal loss of neurologic amyotrophy versus root involvement or radiculopathy. 4. MRI of the plexus may be helpful; it would usually exclude structural lesions and may show signal intensity of the plexus. 5. Recommended treatment would be corticosteroids in the acute setting. If there is limited response to steroids, either IVIG or plasmapheresis can be may tried. There is some evidence of improvement with these two therapeutic measures. 6. Recommend limiting use of opiates and may add gabapentin or Lyrica. Thank you for the opportunity to participate in the care of your patient. Please call for questions. MD VI Vega/CATHY /11:02 PM /5:36 AM [place]
[2017-01-07] MEDS: METHOCARBAMOL 500 MG TAB PO PRN (09:01)
[2017-01-07] MEDS: CHOLECALCIFEROL (VIT D3) 1000 UNIT TAB PO SCH (09:02)
[2017-01-07] MEDS: PANTOPRAZOLE SOD 40 MG DELAYED RELEASE TAB PO SCH (09:02)
[2017-01-07] MEDS: DOCUSATE SODIUM 100 MG CAP PO SCH (09:03)
[2017-01-07] MEDS: LACTOBACILLUS ACIDOPHILUS TAB PO SCH (09:03)
[2017-01-07] MEDS: CITALOPRAM HYDROBROMIDE 40 MG TAB PO SCH (09:03)
[2017-01-07] MEDS: DEXAMETHASONE 4 MG TAB PO SCH (09:03)
[2017-01-07] MEDS: MORPHINE SULFATE 4 MG/ML INJ IV PUSH PRN (10:20)
[2017-01-07] MEDS ORDERED: DEXA2TAB PO (19:24)
[2017-01-07] MEDS ORDERED: KETO10 PO (19:24)
[2017-01-07] MEDS ORDERED: DILA2TAB2 PO (19:24)
--- NOTE | 2017-01-07 19:24 | HHI.DCPOC ---
Discharge Care Plan Diagnosis: (1) Cervical spinal stenosis (2) Degeneration of cervical intervertebral disc Your Health Problems Are: Difficulty with ADL Chronic Pain Goals to Promote Your Health * To prevent worsening of your condition and complications * To maintain your health at the optimal level Directions to Meet Your Goals Take your medications as prescribed Follow your dietary instruction Follow activity as directed Keep your appointments as scheduled Take your immunizations and boosters as scheduled If your symptoms worsen call your PCP, if no PCP go to Urgent Care Center or Emergency Room Smoking is Dangerous to Your Health. Avoid second hand smoke Call the 24-hour hour crisis hotline for domestic abuse at Arnoldo Goyal MD Jan 07, 2017 19:24
--- NOTE | 2017-01-07 19:28 | HHI.DS ---
Discharge Summary Admission Date Jan 05, 2017 at 18:35 Discharge Date: Jan 07, 2017 Admitting Diagnosis Cervical degenerative disc disease Severe left shoulder and upper extremity pain-radiculopathy versus brachial plexitis versus neuropathy (1) Left brachial plexitis Diagnosis: Principal ICD Code: G54.0 - Brachial plexus disorders (2) Cervical spinal stenosis ICD Code: M48.02 - Spinal stenosis of cervical region Status: Chronic Brief History Ms. Lange is a 61-year-old lady who states that approximately 10 days ago she turned at night and felt some discomfort in the left shoulder. Throughout the next day she experienced progressive severe pain in the left posterior shoulder and upper scapular region with progressive radiation of pain to the primarily dorsal aspect of the left arm greater than forearm. The pain has persisted and increased in severity over the past week. She has now developed constant numbness in the first through third digits of the left hand with occasional numbness in the dorsal left forearm. The pain has ranged from a 7-10/10 severity over the past week. She presented to the emergency room last week and states that she was given an injection which slightly helped the pain. An outpatient MRI of the cervical spine and thoracic spine was ordered. She has taken oxycodone Toradol prednisone and Robaxin for the pain, all without significant relief. She has no complaint of fevers or chills. No chest pain or shortness of breath. No productive cough. She does have a history of low back pain, but over the past couple of weeks has developed numbness over the left anterior lateral thigh. CBC/BMP: 01/06/17 0641 01/06/17 0641 Significant Findings Laboratory Tests Test 01/06/17 06:41 White Blood Count 13.0 TH/MM3 (4.0-11.0) Neutrophils (%) (Auto) 85.9 % (16.0-70.0) Neutrophils # (Auto) 11.1 TH/MM3 (1.8-7.7) Blood Urea Nitrogen 23 MG/DL (7-18) Random Glucose 125 MG/DL (74-106) Estimat Glomerular Filtration Rate 64 ML/MIN (>89) C-Reactive Protein 0.37 MG/DL (0.00-0.30) Hospital Course Patient admitted for management of severe intractable pain and urgent neurology evaluation and imaging studies for diagnostic purposes. MRI brachial plexus within normal limits Neurology evaluation suggesting possible left brachial plexitis. Physical therapy initiated. Intervenous steroids and intravenous pain medications as needed initiated. Patient with moderate overall improvement in severity of pain. Plans for outpatient neurology follow-up and EMG. Pt Condition on Discharge: Stable Discharge Disposition: Discharge Home Discharge Instructions DIET: Follow Instructions for: As Tolerated, No Restrictions ACTIVITIES You can perform: Weight Bearing As Heidi Activities to Avoid: Lifting/Bending, Prolonged Standing, Strenuous Activity New Medications: Dexamethasone (Dexamethasone) 2 Mg Tab 2 MG PO Q8HR for Control Inflammation, #30 TAB 0 Refills 1 tablet 3 times per day 7 days 1 tablet 2 times per day 3 days 1 tablet once per day 3 days Then discontinue Ketorolac (Ketorolac) 10 Mg Tab 10 MG PO TID for Pain Management, #12 TAB 0 Refills Hydromorphone (Dilaudid) 2 Mg Tab 2 MG PO Q4H PRN for PAIN SCALE 7 TO 10, #60 TAB 0 Refills Continued Medications: Calcium Carbonate (Antacid) (Tums) 500 Mg Chew 500 MG CHEW PRN for HEARTBURN, TAB 0 Refills Carisoprodol (Soma) 350 Mg Tab 350 MG PO QID PRN for PAIN, TAB 0 Refills Cholecalciferol (Vitamin D3) 3,000 Unit Tab 3000 UNITS PO DAILY for Nutritional Supplement, #1 BOTTLE 0 Refills Citalopram (Citalopram) 40 Mg Tab 40 MG PO DAILY for Control Depression, #30 TAB 0 Refills Folic Acid (Folic Acid) 1 Mg Tablet Ketorolac (Ketorolac) 10 Mg Tab 10 MG PO Q6HR PRN for PAIN, TAB 0 Refills Omeprazole (Omeprazole) 20 Mg Cap Oxycodone-Acetaminophen (Oxycodone-Acetaminophen) 5-325 mg Tab 1 TAB PO Q8HR for PAIN, TAB 0 Refills Pseudoephedrine (Eql Nasal Decongestant) 30 Mg Tab Saccharomyces Boulardii (Florastor) 250 Mg Cap 250 MG PO BID for Nutritional Supplement, CAP 0 Refills Trazodone (Trazodone) 150 Mg Tablet 150 MG PO HS for Control Depression, #30 TAB 0 Refills Turmeric (Curcuma Longa) (Turmeric) 450 Mg-50 Mg Cap Arnoldo Goyal MD Jan 07, 2017 19:28
--- NOTE | 2017-01-07 19:32 | HHI.NSPN ---
History Chief Complaint: Pain to the left posterior shoulder and arm. Interval History Patient indicates left shoulder arm pain moderately improved with intravenous medications. Neurology evaluation completed and indicates possible left brachial plexitis. Exam Results Vital Signs Date Time Temp Pulse Resp B/P (MAP) Pulse Ox O2 Delivery O2 Flow Rate FiO2 01/07/17 17:27 16 01/07/17 16:16 98.4 73 140/72 (94) 94 01/07/17 01:25 21 Intake and Output 01/07/17 01/07/17 01/08/17 08:00 16:00 00:00 Intake Total 480 ml Balance 480 ml Physical Examination MUSCULOSKELETAL: GARCIA w/o difficulty, no evident deformity or clubbing. TTP at T1 and left paraspinal going across the upper posterior left shoulder and into the left lateral arm w/moderate point tenderness to the distal upper shoulder and proximal lateral arm. NEUROLOGICAL: AAOx3. Speech clear & appropriate. Follows simple commands w/o difficulty. Sensation intact to light touch to all extremities except for the left hand 2nd digit which is decreased and to a lesser degree the 1st & 3rd digits. Motor strength is 5/5 to all major flexion & extension muscle groups. Chinedu's response absent bilaterally Gait is steady Lab, Micro, Other Results Shoulder MRI 01/06/17 0000 Signed Impressions: Service Date/Time: December 11:31 - CONCLUSION: 1. The rotator cuff appears intact. 2. Mild impingement with high riding humeral head and posterior downsloping acromion. Rosales Sainz MD Brachial Plexus MRI 01/06/17 0000 Signed Impressions: Service Date/Time: December 11:31 - CONCLUSION: 1. The brachial plexus is intact. 2. Degenerative changes of the cervical spine with disc protrusions as above. Cristian Polanco MD Medical Decision Making Impression and Plan Impression: 1. Patient has had moderate reduction of previously severe intractable left shoulder and upper extremity pain symptoms with intravenous medications and use of steroids. Possible brachioplexopathy Plan: Findings were discussed with the patient. Discussed neurology recommendations Plan discharge home today with oral steroids and as needed hydromorphone for severe breakthrough pain. She will continue omeprazole at home. An appointment will be scheduled with neurology for follow-up evaluation, EMG. Signs and symptoms to watch for fully discussed. Arnoldo Goyal MD Jan 07, 2017 19:32
[2017-01-07] MEDS ORDERED: GABA300C5 PO (20:00)
== END 2017-01-07 20:25 | disposition home or self-care (01) ==
LOC: N05A 18:35 → INTOOBSV 18:35
PROVIDERS: ADMIT Neurological Surgery; ATTEND Neurological Surgery
DX: M25.512 Pain in left shoulder (principal); M79.602 Pain in left arm; R20.0 Anesthesia of skin; M48.02 Spinal stenosis, cervical region; M50.30 Other cervical disc degeneration, unspecified cervical region; M45.9 Ankylosing spondylitis of unspecified sites in spine; Z85.038 Personal history of other malignant neoplasm of large intestine; G89.29 Other chronic pain; M79.1 Myalgia; M54.5 Low back pain; Z15.09 Genetic susceptibility to other malignant neoplasm; E66.3 Overweight; G47.30 Sleep apnea, unspecified; Z79.899 Other long term (current) drug therapy
CPT/HCPCS: 73220; 73221; 80053; 85025; 85652; 86140; 94002; 94003; 94150; 96374; 96375; 96376; 97162; 97166; A9579; G0378; G8987; G8988; J1170; J1885; J2270; J8540